=== PATIENT | male | born 1940 | race Caucasian/White ===

== ENCOUNTER 2021-08-09 11:50 | Day surgery (SDC) | payer MEDICARE, BC ==
[2021-08-04 10:37] LABS: BASOPHILS # (AUTO) 0.1 X10'3 (0-0.2); BASOPHILS % (AUTO) 1.3 % (0-1); EOSINOPHILS # (AUTO) 0.3 X10'3 (0-0.9); EOSINOPHILS % (AUTO) 4.3 % (0-6); HEMATOCRIT 43.3 % (42.0-52.0); HEMOGLOBIN 14.6 g/dl (14.0-17.9); LYMPHOCYTES # (AUTO) 2.2 X10'3 (1.1-4.8); MEAN CORPUSCULAR HEMOGLOBIN 31.1 PG (27.0-31.0); MEAN CORPUSCULAR HGB CONC 33.7 g/dL (33.0-36.5); MEAN CORPUSCULAR VOLUME 92.4 FL (78-98); MEAN PLATELET VOLUME 8.1 FL (7.4-10.4); MONOCYTES # (AUTO) 0.7 X10'3 (0-0.9); MONOCYTES % (AUTO) 10.1 % (2-12); NEUTROPHILS # (AUTO) 3.8 X10'3 (1.8-7.7); NEUTROPHILS % (AUTO) 53.3 % (42-75); PLATELET COUNT 225 X10'3 (140-440); RED BLOOD COUNT 4.69 X10'6 (4.70-6.10); RED CELL DISTRIBUTION WIDTH 14.1 % (11.5-14.5); WHITE BLOOD COUNT 7.2 X10'3 (4.5-11.0)
[2021-08-04 10:48] LABS: APTT 27 SECONDS (22-32)
[2021-08-04 10:49] LABS: ALBUMIN 3.4 G/DL (3.4-5.0); ANION GAP 9 (8-16); BLOOD UREA NITROGEN 12 MG/DL (7-18); CALCIUM 8.5 MG/DL (8.5-10.1); CHLORIDE 107 MMOL/L (99-107); CHOL/HDL RATIO 3.2 (0.00-4.99); CHOLESTEROL 167 MG/DL (0-200); CREATININE 0.86 MG/DL (0.60-1.10); GLUCOSE 155 MG/DL (70-104); HDL CHOLESTEROL 52 MG/DL (35-60); LDL CHOLESTEROL 92 MG/DL (50-100); POTASSIUM 4.3 MMOL/L (3.5-5.1); SODIUM 141 MMOL/L (135-145); TOTAL CARBON DIOXIDE 25.2 MMOL/L (24-32); TRIGLYCERIDES 126 MG/DL (20-135); eGFR 86 ML/MIN
[2021-08-09] VITALS (10 sets, daily range): BP systolic 119–148; BP diastolic 57–80
[~2021-08-09] VITALS: Ht 180.3 cm; Wt 91.1 kg
[~2021-08-09 11:50] MED LIST: CLOP75TA33 PO; FEBU40TA PO; OMEP20CA16 PO; PRAV80TA3 PO; SERT-433 PO; VALS1TAB77 PO
[2021-08-09] MEDS ORDERED: METF-900 PO (12:32)
[2021-08-09] MEDS ORDERED: PANT20TA18 PO (12:32)
[2021-08-09] MEDS ORDERED: LOSA100T57 PO (12:32)
[2021-08-09] MEDS ORDERED: AMLO10TA13 PO (12:32)
[2021-08-09] MEDS ORDERED: LORA-641 PO (12:32)
[2021-08-09] MEDS ORDERED: LORazepam 0.5 MG tablet PO PRN (12:35)
[2021-08-09] MEDS ORDERED: normal saline 1,000 ML IV SCH (12:35)
[2021-08-09] MEDS ORDERED: diphenhydrAMINE 25mg capsule PO PRN (12:35)
[2021-08-09] MEDS ORDERED: verapamil 2.5 mg/ml inj IV ONE (14:54)
[2021-08-09] MEDS ORDERED: fentaNYL/PF 50MCG/1 ML 2ML syringe ONE (14:55)
[2021-08-09] MEDS ORDERED: midazolam 1 mg/ML 2ml injection ONE ×2 (14:55→15:51)
[2021-08-09] MEDS ORDERED: LIDOcaine 1% 30ml preserv. free vial ONE (14:55)
[2021-08-09] MEDS ORDERED: heparin 1,000unit/ml 10ml vial 10 ML ONE (14:55)
[2021-08-09] MEDS ORDERED: nitroGLYCERIN-Tridil 50MG/D5W 250 ML IV ONE (14:56)
[2021-08-09] MEDS ORDERED: iohexol 350MG/ML 100ml bottle IV ONE ×2 (15:31→16:06)
[2021-08-09] MEDS ORDERED: clopidogrel 300mg tablet ONE (16:08)
[2021-08-09] MEDS ORDERED: aspirin 325mg tablet ONE (16:08)
[2021-08-09] MEDS ORDERED: normal saline 1000ml 1,000 ML IV SCH (17:20)
[2021-08-09] MEDS ORDERED: HYDROcodone/acetaminophen 5mg/325mg tablet PO PRN (17:25)
[2021-08-09] MEDS ORDERED: HYDROcodone/acetaminophen 10/325mg tab PO PRN (17:25)
== END 2021-08-09 19:35 | disposition home or self-care (01) ==
LOC: SSTAY O 11:50
PROVIDERS: ATTEND Internal Medicine Interventional Cardiology
DX: R94.39 Abnormal result of other cardiovascular function study (principal); I25.10 Atherosclerotic heart disease of native coronary artery without angina pectoris; E11.9 Type 2 diabetes mellitus without complications; I10 Essential (primary) hypertension; I35.2 Nonrheumatic aortic (valve) stenosis with insufficiency; K21.9 Gastro-esophageal reflux disease without esophagitis; M10.9 Gout, unspecified; E78.49 Other hyperlipidemia; E66.9 Obesity, unspecified; Z68.28 Body mass index [BMI] 28.0-28.9, adult; Z88.8 Allergy status to other drugs, medicaments and biological substances; Z79.01 Long term (current) use of anticoagulants; Z86.73 Personal history of transient ischemic attack (TIA), and cerebral infarction without residual deficits; Z79.84 Long term (current) use of oral hypoglycemic drugs; Z79.899 Other long term (current) drug therapy
CPT/HCPCS: 36415; 80048; 80061; 85025; 85610; 85730; 93005; 93458; 99152; 99153; C1725; C1751; C1760; C1769; C1874; C1894; C9600; J1644; J2250; J3010; J3490; J7030; Q0163; Q9967; A5120; A6258; A6402